=== PATIENT | female | born 1940 | race African-American/Black ===

== ENCOUNTER 2016-08-02 12:02 | Emergency (ER) | payer OTHER ==
[2016-08-02 12:11] VITALS: BP 157/94; PULSE 77; TEMP 98.3; BMI 28.0
--- NOTE | 2016-08-02 14:19 | PDOC ---
History of Present Illness - General Chief Complaint: Cold Symptoms Stated Complaint: SINUS, CLOGGED EARS Time Seen by Provider: 08/02/16 13:52 History Source: Patient Exam Limitations: No Limitations - History of Present Illness Initial Comments: 08/02/16 14:13 Patient is here with complaints of 10 days runny nose, frontal headaches, worse on the right than the left. did not have fever until a few days ago when the drainage turned thick yellow with some blood-tinged with her blowing. States ears or congestion, has no cough, no shortness of breath. has frequent troubles with her sinuses Timing/Duration: reports: changing over time, getting worse, gone now Severity: reports: mild, moderate Associated Symptoms: reports: facial pain, fever/chills, headache, nasal congestion, nasal drainage. denies: cough, dizziness Past History - Travel Traveled outside of the country in the last 30 days: No Close contact w/someone who was outside of country & ill: No - Past Medical History Allergies/Adverse Reactions: Allergies Allergy/AdvReac Type Severity Reaction Status Date / Time codeine [Codeine] Allergy Intermediate Verified 08/02/16 12:07 Home Medications: Ambulatory Orders Calcium 250Mg/Vit-D 125 Units [Oscal 250 mg+D -] 2 each PO BID 10/23/12 Metoprolol Succinate 25 mg PO HS 12/11/12 Rosuvastatin Calcium [Crestor] 5 mg PO HS 12/11/12 Amox-Tr/K Cl [Augmentin 875Mg Tablet] 1 tab PO BID #20 tablet 08/02/16 Anemia: No Asthma: No Cancer: No Cardiac Disorders: Yes (cardiac arrythmia) CVA: No COPD: No CHF: No Dementia: No Diabetes: No GI Disorders: No Disorders: No HTN: No Hypercholesterolemia: Yes Liver Disease: No Seizures: No Thyroid Disease: No Other medical history: EYE PROBLEMS - Surgical History Cardiac Surgery: No - Psycho/Social/Smoking Cessation Hx Anxiety: No Suicidal Ideation: No Smoking History: Never smoked Have you smoked in the past 12 months: No Information on smoking cessation initiated: No Hx Alcohol Use: No Drug/Substance Use Hx: No Substance Use Type: None Review of Systems - Review of Systems Able to Perform ROS?: Yes Is the patient limited Slovak proficient: Yes Constitutional: Yes: Symptoms Reported, See HPI, Chills, Fever, Malaise HEENTM: Yes: Symptoms Reported, See HPI, Nose Congestion Respiratory: Yes: See HPI. No: Symptoms reported, Cough Cardiac (ROS): No: Symptoms Reported Integumentary: Yes: Symptoms Reported, Other All Other Systems: Reviewed and Negative *Physical Exam - Vital Signs Last Vital Signs Temp Pulse Resp BP Pulse Ox 98.3 F 77 18 157/94 100 08/02/16 12:08 08/02/16 12:08 08/02/16 12:08 08/02/16 12:08 08/02/16 12:08 - Physical Exam General Appearance: Yes: Nourished, Appropriately Dressed, Mild Distress HEENT: positive: TASHIA, TMs Normal, Pharynx Normal (some sinus drainage noted in posterior pharynx), Nasal Congestion, Rhinorrhea (clear/ thick white ), Sinus Tenderness (worse on ). negative: Normal ENT Inspection Neck: positive: Supple. negative: Tender, Lymphadenopathy (R), Lymphadenopathy (L) Respiratory/Chest: positive: Lungs Clear, Normal Breath Sounds Cardiovascular: positive: Regular Rate Gastrointestinal/Abdominal: positive: Normal Bowel Sounds, Soft. negative: Tender Integumentary: positive: Normal Color, Dry, Other (patient's with a small lesion to her left cheek firm, nontender, without erythema or drainage. 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 NML intact, Fully Oriented, Alert, Normal Mood/ Affect, Normal Response, Motor Strength 5/5 Progress Note - Progress Note Progress Note: Mild sinusitis, will treat with Augmentin and conservative measures *DC/Admit/Observation/Transfer Diagnosis at time of Disposition: Sinusitis Qualifiers: Sinusitis location: unspecified location Chronicity: unspecified Qualified Code (s): J32.9 - Chronic sinusitis, unspecified - Discharge Dispostion Disposition: HOME Condition at time of disposition: Stable Admit: No - Prescriptions Prescriptions: Amox-Tr/K Cl [Augmentin 875Mg Tablet] 1 tab PO BID #20 tablet - Patient Instructions Printed Discharge Instructions: DI for Sinusitis Additional Instructions: Rest, drink lots of fluids: Teas, water, soups, Pedialyte Saltwater gargles Steamy showers/seem to face break up mucus Avoid contact with others until fevers and cough resolved Lots of handwashing and good hygiene Continue [id number] medications for symptomatic relief Tylenol or Motrin for fever and pain Augmentin 875 mg one pill every 12 hours for 10 days Followup with private physician in one to 2 days as needed Return to emergency department for worsened symptoms, fevers, dehydration
== END 2016-08-02 14:33 | disposition home or self-care (01) ==
LOC: JERFT 12:02
DX: J32.9 Chronic sinusitis, unspecified (principal)
CPT/HCPCS: 99281-25

== ENCOUNTER 2019-07-04 17:39 | Inpatient (IN) | payer OTHER ==
[2019-07-04] MEDS ORDERED: LACTATED RINGERS SOLUTION 1000 ML INFUS.BAG IV ONE (18:28)
[2019-07-04] MEDS ORDERED: ONDANSETRON 4 MG/2 ML VIAL IVPB ONE (18:28)
[2019-07-04] MEDS ORDERED: FAMOTIDINE 20 MG/50 ML IVPB 20 MG/50 ML MG IVPB ONE ×2 (18:28→18:32)
[2019-07-04] MEDS ORDERED: ONDANSETRON 4 MG/2 ML VIAL ONE (18:32)
[2019-07-04 18:53] LABS: BASO % 0.2 % (0-2.0); EOS % 0.3 % (0-4.5); HEMATOCRIT 43.1 % (32.4-45.2); HEMOGLOBIN 14.8 GM/dL (10.7-15.3); LYMPH % 25.9 % (8-40); MCHC 34.4 g/dl (32.0-36.0); MEAN CELL VOLUME 90.2 fl (80-96); MEAN PLT VOLUME 8.2 fl (7.5-11.1); MONO % 8.3 % (3.8-10.2); NEUT % 65.3 % (42.8-82.8); PLATELET COUNT 232 K/MM3 (134-434); RBC 4.78 M/mm3 (3.60-5.2); RDW 14.3 % (11.6-15.6); WHITE BLOOD COUNT 4.8 K/mm3 (4.0-10.0)
[2019-07-04 18:59] LABS: INR 1.13 (0.83-1.09); PROTHROMBIN TIME (PATIENT) 13.3 SEC (9.7-13.0)
[2019-07-04 19:21] LABS: BILIRUBIN,TOTAL 1.2 mg/dL (0.2-1); BLOOD UREA NITROGEN 18.4 mg/dL (7-18); CALCIUM 9.9 mg/dL (8.5-10.1); CREATININE 1.1 mg/dL (0.55-1.3); MAGNESIUM 2.3 mg/dL (1.8-2.4); POTASSIUM 3.9 mmol/L (3.5-5.1); TOT PROT 9.7 g/dl (6.4-8.2)
[2019-07-04 19:24] LABS: LIPASE 245 U/L (73-393)
--- NOTE | 2019-07-04 20:03 | PDOC ---
History of Present Illness - General Chief Complaint: Nausea/Vomiting Stated Complaint: CHEST PAIN Time Seen by Provider: 07/04/19 18:15 History Source: Patient Exam Limitations: No Limitations - History of Present Illness Initial Comments: 07/04/19 19:59 78y F with PMH of "irregular heart beat", HLD, Sarcoidosis presenting to ED for dizziness, nausea and vomiting today. Patient states she woke up this AM feeling "off" and suddenly started feeling nauseous and started vomiting. She went to lay down and woke up dizzy and vomited. On the way here she also vomited. She describes the dizziness as the room spinning, not worse with position changes. She denies recent illnesses, congestion, sore throat, chest pain, SOB, headache, changes in vision, numbness/tingling, weakness, abdominal pain, diarrhea. PMD: Christopher PMH: see hpi PSH: none Meds: toprol, lipitor Allergies: codeine NIH Stroke Scale - Last Known Well Date/Time & Onset Date Last Known Well: 07/04/19 Time Last Known Well: 09:00 - Initial Evaluation Level of consciousness: Alert Ask patient the month and their age: Answers both correctly Ask patient to open & close eyes; make fist and let go: Obeys both correctly Best gaze (horizontal eye movement): Normal Visual field testing: No visual field loss Facial paresis (Show teeth/raise eyebrows/close eyes tight): Normal symmetrical movement Motor Function: Left Arm: Normal Motor Function: Right Arm: Normal (extends arm 90 (or 45) degrees for 10 seconds without drift Motor Function: Left Leg: Normal (extends leg 30 degrees for 5 seconds without drift) Motor Function: Right Leg: Normal (extends leg 30 degrees for 5 seconds without drift) Limb Ataxia: Present in two limbs Sensory(Use pinprick test arms,legs,trunk,face/side to side): Normal Best language (Describe picture, name items, read sentences): No Aphasia Dysarthria (read several words): Normal articulation Extinction and Inattention: No abnormality - Total Score NIH Stroke Scale Score: 2 Past History - Past Medical History Allergies/Adverse Reactions: Allergies Allergy/AdvReac Type Severity Reaction Status Date / Time codeine [Codeine] Allergy Intermediate Verified 08/02/16 12:07 Home Medications: Ambulatory Orders Calcium 250Mg/Vit-D 125 Units [Oscal 250 mg+D -] 2 each PO BID 10/23/12 Metoprolol Succinate 25 mg PO HS 12/11/12 Rosuvastatin Calcium [Crestor] 5 mg PO HS 12/11/12 Carboxymethyl/Glycerin/Poly80 [Refresh Optive Advanced Drops] 07/04/19 Olopatadine HCl 07/04/19 Anemia: No Asthma: No Cancer: No Cardiac Disorders: Yes (cardiac arrythmia) CVA: No COPD: No CHF: No Dementia: No Diabetes: No GI Disorders: No Disorders: No HTN: No Hypercholesterolemia: Yes Liver Disease: No Seizures: No Thyroid Disease: No - Surgical History Cardiac Surgery: No - Immunization History Immunization Up to Date: No - Psycho Social/Smoking Cessation Hx Smoking History: Never smoked Have you smoked in the past 12 months: No Hx Alcohol Use: No Drug/Substance Use Hx: No Substance Use Type: None Review of Systems - Review of Systems Constitutional: No: Symptoms Reported HEENTM: No: Blurred Vision, Double Vision, Hearing Loss Respiratory: No: Symptoms reported Cardiac (ROS): No: Symptoms Reported ABD/GI: Yes: Nausea, Vomiting : No: Symptoms Reported Musculoskeletal: No: Symptoms Reported Integumentary: No: Symptoms Reported Neurological: Yes: Ataxia, Dizziness *Physical Exam - Vital Signs Last Vital Signs Temp Pulse Resp BP Pulse Ox 97.3 F L 104 H 20 157/91 97 07/04/19 17:50 07/04/19 17:50 07/04/19 17:50 07/04/19 17:50 07/04/19 17:50 - Physical Exam General Appearance: Yes: Nourished, Appropriately Dressed. No: Apparent Distress HEENT: positive: EOMI, TASHIA, Normal ENT Inspection Neck: positive: Trachea midline, Supple. negative: Lymphadenopathy (R), Lymphadenopathy (L) Respiratory/Chest: positive: Lungs Clear, Normal Breath Sounds. negative: Crackles, Rales, Rhonchi, Stridor, Wheezing Cardiovascular: positive: Regular Rhythm, Regular Rate, S1, S2. negative: Edema , JVD, Murmur Vascular Pulses: Dorsalis-Pedis (R): 2+, Doralis-Pedis (L): 2+ Gastrointestinal/Abdominal: positive: Normal Bowel Sounds, Soft. negative: Tender Musculoskeletal: negative: CVA Tenderness Extremity: positive: Normal Capillary Refill. negative: Swelling, Calf Tenderness, Erythema Integumentary: positive: Normal Color, Dry, Warm Neurologic: positive: game protector II-XII NML intact, Fully Oriented, Alert, Normal Mood/ Affect, Normal Response, Motor Strength 5/5. negative: Facial Droop, Numbness, Sensory Deficit, Finger to Nose, Confused, Disoriented ED Treatment Course - LABORATORY CBC & Chemistry Diagram: 07/04/19 18:20 07/04/19 18:20 - ADDITIONAL ORDERS Additional order review: Laboratory Results 07/04/19 07/04/19 07/04/19 18:20 18:20 18:20 PT with INR 13.30 H INR 1.13 H Sodium 135 L Potassium 3.9 Chloride 104 Carbon Dioxide 23 Anion Gap 7 L BUN 18.4 H Creatinine 1.1 Est GFR (CKD-EPI)AfAm 56.48 Est GFR (CKD-EPI)NonAf 48.73 Random Glucose 169 H Calcium 9.9 Magnesium 2.3 Total Bilirubin 1.2 H AST 26 ALT 19 Alkaline Phosphatase 135 H Creatine Kinase 173 Creatine Kinase Index 0.8 CK-MB (CK-2) 1.4 Troponin I < 0.02 Total Protein 9.7 H Albumin 4.0 Lipase 245 07/04/19 18:20 RBC 4.78 MCV 90.2 MCHC 34.4 RDW 14.3 MPV 8.2 Neutrophils % 65.3 D Lymphocytes % 25.9 Monocytes % 8.3 Eosinophils % 0.3 D Basophils % 0.2 - RADIOLOGY Radiology Studies Ordered: Category Date Time Status HEAD CT WITHOUT CONTRAST [CT] Stat CT Scan 07/04/19 18:36 Ordered CHEST X-RAY PORTABLE* [RAD] Stat Radiology 07/04/19 18:16 Taken - Medications Given in the ED: ED Medications Discontinued Medications Generic Name Dose Route Start Last Admin Trade Name Freq PRN Reason Stop Dose Admin Famotidine/Sodium Chloride 20 mg in 50 mls @ 100 mls/hr 07/04/19 18:28 19:00 Pepcid 20 Mg Premixed Ivpb - IVPB 07/04/19 18:57 100 mls/hr ONCE ONE Administration Lactated Ringer's 1,000 ml 07/04/19 18:28 07/04/19 18:40 Lactated Ringers Solution IV 07/04/19 18:29 1,000 ml NOW ONE Administration Ondansetron HCl 4 mg 07/04/19 18:28 07/04/19 18:45 Zofran Injection IVPB 07/04/19 18:29 4 mg ONCE ONE Administration Medical Decision Making - Medical Decision Making 07/04/19 23:32 78y F with PMH of ?afib, sarcoidosis, hld presenting to ED for dizziness, nausea and vomiting. currently asymptomatic. vitals show tachycardia. patient appears comfortable, no distress HINTS negative however dysmetria with finger-nose. will order labs including cardiac, coags -iv fluids, zofran, pepcid -ekg, cxr, CT head. ekg: sinus tachycardia with 1st degree av block, no byron or depressions. cxr: hilar fullness, no infiltrates or consolidations ct head: no acute pathology, gross infarcts or bleeds labs show elevation of t. bili and alkp but baseline. other labs wnl. patient aysmptomatic, ambulated to bathroom without difficulty. peripheral vertigo v. central vertigo v. dehydration. given sudden onset and abruption of symptoms, could be peripheral however patient has not had these symptoms before and given dysmetria cannot rule out posterior cva/tia. Spoke with Dr Silver, recommended MRI/MRA and full dose ASA. will admit patient sees Dr. Perry and when she was called, stated patient is new and she is not familiar with patient and recommended hospitalist admission. endorsed to hospitalist. Discharge - Discharge Information Problems reviewed: Yes Clinical Impression/Diagnosis: Dizziness, TIA (transient ischemic attack) Condition: Stable - Admission Yes - Follow up/Referral - Patient Discharge Instructions - Post Discharge Activity
--- NOTE | 2019-07-04 20:50 | PDOC ---
Documentation entered by Barbra Lai SCRIBE, acting as scribe for Nick Terry MD. Nick Terry MD: This documentation has been prepared by the Joelle lopez Adrianna, SCRIBE, under my direction and personally reviewed by me in its entirety. I confirm that the documentation accurately reflects all work, treatment, procedures, and medical decision making performed by me. Attending Attestation - Resident Resident Name: Judit Carrillo - [facility] HPI: 78 year old female, with a significant PMH of cardiac arrhythmia, sarcoidosis, and HLD, presents with dizziness, nausea, and vomit since earlier today. Patient reports feeling off upon waking up, and notes sudden onset nausea and NBNB vomit. She endorses room-spinning dizziness (unaffected by positional changes). Allergies: Codeine Surgical History: None reported Social History: Denies EtOH, tobacco, or illicit drug use PCP: Dr. White - Physicial Exam PE: 07/04/19 20:44 Patient is awake and alert, well-nourished, in no distress Normocephalic and atraumatic PERRLA, EOMI, no nystagmus No JVD, no carotid bruits CTA RRR cranial nerves II through XII are grossly intact; motor is 5 over 54; Gait is stable; [id number] (abnormal on the left); no dysmetria, no dysdiadochokinesia - Medical Decision Making 07/04/19 20:49 78-year-old female with history of hypertension hypercholesterolemia presents with sudden onset of dizziness associated with nausea and vomiting as well as dysmetria and [id number] abnormalities that have now significantly improved. CT of head shows no evidence of intracranial hemorrhage. Patient is not a TPA candidate given the resolution of her symptoms. EKG shows no evidence of acute ischemia or dysrhythmia. Will administer aspirin and meclizine. Will place on stroke/obvious for TIA evaluation.
[2019-07-04] MEDS ORDERED: ASPIRIN 81 MG CHEWABLE TABLETS PO ONE (22:22)
[2019-07-04] MEDS ORDERED: ASPIRIN 81 MG CHEWABLE TABLETS ONE (22:28)
--- NOTE | 2019-07-04 23:10 | HP ---
<Chay Singh - Last Filed: 07/05/19 00:52> CHIEF COMPLAINT: PCP: HISTORY OF PRESENT ILLNESS: ER course was notable for: (1) (2) (3) Recent Travel: PAST MEDICAL HISTORY: PAST SURGICAL HISTORY: Social History: Smoking: Alcohol: Drugs: Allergies codeine [Codeine] Allergy (Intermediate, Verified 08/02/16 12:07) "AGITATION" "DELERIOUS" HOME MEDICATIONS: Home Medications Medication Instructions Recorded Calcium 250Mg/Vit-D 125 Units 2 each PO BID 10/23/12 [Oscal 250 mg+D -] Metoprolol Succinate 25 mg PO HS 12/11/12 Rosuvastatin Calcium [Crestor] 5 mg PO HS 12/11/12 Carboxymethyl/Glycerin/Poly80 07/04/19 [Refresh Optive Advanced Drops] Olopatadine HCl 07/04/19 REVIEW OF SYSTEMS CONSTITUTIONAL: Absent: fever, chills, diaphoresis, generalized weakness, malaise, loss of appetite, weight change HEENT: Absent: rhinorrhea, nasal congestion, throat pain, throat swelling, difficulty swallowing, mouth swelling, ear pain, eye pain, visual changes CARDIOVASCULAR: Absent: chest pain, syncope, palpitations, irregular heart rate, lightheadedness , peripheral edema RESPIRATORY: Absent: cough, shortness of breath, dyspnea with exertion, orthopnea, wheezing, stridor, hemoptysis GASTROINTESTINAL: Absent: abdominal pain, abdominal distension, nausea, vomiting, diarrhea, constipation, melena, hematochezia GENITOURINARY: Absent: dysuria, frequency, urgency, hesitancy, hematuria, flank pain, genital pain MUSCULOSKELETAL: Absent: myalgia, arthralgia, joint swelling, back pain, neck pain SKIN: Absent: rash, itching, pallor HEMATOLOGIC/IMMUNOLOGIC: Absent: easy bleeding, easy bruising, lymphadenopathy, frequent infections ENDOCRINE: Absent: unexplained weight gain, unexplained weight loss, heat intolerance, cold intolerance NEUROLOGIC: Absent: headache, focal weakness or paresthesias, dizziness, unsteady gait, seizure, mental status changes, bladder or bowel incontinence PSYCHIATRIC: Absent: anxiety, depression, suicidal or homicidal ideation, hallucinations. PHYSICAL EXAMINATION Vital Signs - 24 hr 07/04/19 07/04/19 07/04/19 17:50 20:50 23:45 Temperature 97.3 F L 98.1 F Pulse Rate 104 H Pulse Rate [ 113 H 72 Apical] Respiratory 20 16 18 Rate Blood Pressure 157/91 Blood Pressure 174/88 H 143/73 [Right Arm] O2 Sat by Pulse 97 100 99 Oximetry (%) 07/04/19 23:49 Temperature Pulse Rate Pulse Rate [ Apical] Respiratory Rate Blood Pressure Blood Pressure [Right Arm] O2 Sat by Pulse 99 Oximetry (%) GENERAL: Awake, alert, and fully oriented, in no acute distress. HEAD: Normal with no signs of trauma. EYES: Pupils equal, round and reactive to light, extraocular movements intact, sclera anicteric, conjunctiva clear. No lid lag. EARS, NOSE, THROAT: Ears normal, nares patent, oropharynx clear without exudates. Moist mucous membranes. NECK: Normal range of motion, supple without lymphadenopathy, JVD, or masses. LUNGS: Breath sounds equal, clear to auscultation bilaterally. No wheezes, and no crackles. No accessory muscle use. HEART: Regular rate and rhythm, normal S1 and S2 without murmur, rub or gallop. ABDOMEN: Soft, nontender, not distended, normoactive bowel sounds, no guarding, no rebound, no masses. No hepatomegaly or splenomegaly. MUSCULOSKELETAL: Normal range of motion at all joints. No bony deformities or tenderness. No CVA tenderness. UPPER EXTREMITIES: 2+ pulses, warm, well-perfused. No cyanosis. No clubbing. No peripheral edema. LOWER EXTREMITIES: 2+ pulses, warm, well-perfused. No calf tenderness. No peripheral edema. NEUROLOGICAL: Cranial nerves II-XII intact. Normal speech. Normal gait. PSYCHIATRIC: Cooperative. Good eye contact. Appropriate mood and affect. SKIN: Warm, dry, normal turgor, no rashes or lesions noted, normal capillary refill. Laboratory Results - last 24 hr 07/04/19 07/04/19 07/04/19 18:20 18:20 18:20 WBC 4.8 RBC 4.78 Hgb 14.8 Hct 43.1 MCV 90.2 MCH 31.0 MCHC 34.4 RDW 14.3 Plt Count 232 MPV 8.2 Absolute Neuts (auto) 3.1 Neutrophils % 65.3 D Lymphocytes % 25.9 Monocytes % 8.3 Eosinophils % 0.3 D Basophils % 0.2 Nucleated RBC % 0 PT with INR INR Sodium 135 L Potassium 3.9 Chloride 104 Carbon Dioxide 23 Anion Gap 7 L BUN 18.4 H Creatinine 1.1 Est GFR (CKD-EPI)AfAm 56.48 Est GFR (CKD-EPI)NonAf 48.73 Random Glucose 169 H Calcium 9.9 Magnesium 2.3 Total Bilirubin 1.2 H AST 26 ALT 19 Alkaline Phosphatase 135 H Creatine Kinase 173 Creatine Kinase Index 0.8 CK-MB (CK-2) 1.4 Troponin I < 0.02 Total Protein 9.7 H Albumin 4.0 Lipase 245 07/04/19 18:20 WBC RBC Hgb Hct MCV MCH MCHC RDW Plt Count MPV Absolute Neuts (auto) Neutrophils % Lymphocytes % Monocytes % Eosinophils % Basophils % Nucleated RBC % PT with INR 13.30 H INR 1.13 H Sodium Potassium Chloride Carbon Dioxide Anion Gap BUN Creatinine Est GFR (CKD-EPI)AfAm Est GFR (CKD-EPI)NonAf Random Glucose Calcium Magnesium Total Bilirubin AST ALT Alkaline Phosphatase Creatine Kinase Creatine Kinase Index CK-MB (CK-2) Troponin I Total Protein Albumin Lipase ASSESSMENT/PLAN: ATTENDING PHYSICIAN STATEMENT I saw and evaluated the patient. I reviewed the resident's note and discussed the case with the resident. I agree with the resident's findings and plan as documented. SUBJECTIVE: OBJECTIVE: ASSESSMENT AND PLAN: <Mari Conti - Last Filed: 07/05/19 05:01> CHIEF COMPLAINT: dizziness and vomiting for 1 day PCP: Dr White HISTORY OF PRESENT ILLNESS: 78y F with PMH of Afib ("irregular heart beat" per patient), HLD, Sarcoidosis presenting to ED for dizziness, nausea and vomiting today. Patient states she woke up this AM feeling like the room is spinnig and suddenly started feeling nauseous and started vomiting. She went to lay down and woke up, sat up and got dizzy again then vomited. As On the way here she also vomited. Pt endorsed 7-8 recurrent episodes. As per daughter her last episode was associated with a hot/ cold sensation and perspiration. Whenever, pt tried to ambulate, she would also get extremely unsteady per daughter and she would have to sit or be assisted to the bathroom. 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 She also denies headache, changes in vision, hearing loss, tinnitus, syncope, chest pain, SOB, palpitations, numbness/tingling, weakness or changes in bowel movement or urination. Pt endorsed resolution of her symptoms since she has been in the ED and after receiving fluids. ER course was notable for: (1) CBC unremarkable, CMP remarkable for hyponatremia, BG 169, t kang 1.2, ALP 135. PT/INR 13.3/1.13, (2) trop neg, head CT neg, CXR no acute pathology, EKG . NIHSS 2 (3) Neuro Dr Tipton consulted requested MRI and aspirin Recent Travel: none PAST MEDICAL HISTORY: as above PAST SURGICAL HISTORY: none Social History: denies Smoking: Alcohol: Drugs: Allergies codeine [Codeine] Allergy (Intermediate, Verified 08/02/16 12:07) "AGITATION" "DELERIOUS" HOME MEDICATIONS: Home Medications Medication Instructions Recorded Calcium 250Mg/Vit-D 125 Units 2 each PO BID 10/23/12 [Oscal 250 mg+D -] Metoprolol Succinate 25 mg PO HS 12/11/12 Rosuvastatin Calcium [Crestor] 5 mg PO HS 12/11/12 Carboxymethyl/Glycerin/Poly80 07/04/19 [Refresh Optive Advanced Drops] Olopatadine HCl 07/04/19 REVIEW OF SYSTEMS CONSTITUTIONAL: Absent: fever, chills, diaphoresis, generalized weakness, malaise, loss of appetite, weight change HEENT: Absent: rhinorrhea, nasal congestion, throat pain, throat swelling, difficulty swallowing, mouth swelling, ear pain, eye pain, visual changes CARDIOVASCULAR: Absent: chest pain, syncope, palpitations, irregular heart rate, lightheadedness , peripheral edema RESPIRATORY: Absent: cough, shortness of breath, dyspnea with exertion, orthopnea, wheezing, stridor, hemoptysis GASTROINTESTINAL: Absent: abdominal pain, abdominal distension, nausea, vomiting, diarrhea, constipation, melena, hematochezia GENITOURINARY: Absent: dysuria, frequency, urgency, hesitancy, hematuria, flank pain, genital pain MUSCULOSKELETAL: Absent: myalgia, arthralgia, joint swelling, back pain, neck pain SKIN: Absent: rash, itching, pallor HEMATOLOGIC/IMMUNOLOGIC: Absent: easy bleeding, easy bruising, lymphadenopathy, frequent infections ENDOCRINE: Absent: unexplained weight gain, unexplained weight loss, heat intolerance, cold intolerance NEUROLOGIC: dizziness, unsteady gait Absent: headache, focal weakness or paresthesias, , seizure, mental status changes, bladder or bowel incontinence PSYCHIATRIC: Absent: anxiety, depression, suicidal or homicidal ideation, hallucinations. PHYSICAL EXAMINATION Vital Signs - 24 hr 07/04/19 07/04/19 17:50 20:50 Temperature 97.3 F L Pulse Rate 104 H Pulse Rate [ 113 H Apical] Respiratory 20 16 Rate Blood Pressure 157/91 Blood Pressure 174/88 H [Right Arm] O2 Sat by Pulse 97 100 Oximetry (%) GENERAL: Awake, alert, and fully oriented, in no acute distress. HEAD: Normal with no signs of trauma. EYES: Pupils equal, round and reactive to light, extraocular movements intact, sclera anicteric, conjunctiva clear. No lid lag. EARS, NOSE, THROAT: Ears normal, nares patent, oropharynx clear without exudates. Moist mucous membranes. NECK: Normal range of motion, supple without lymphadenopathy, JVD, or masses. LUNGS: Breath sounds equal, clear to auscultation bilaterally. No wheezes, and no crackles. No accessory muscle use. HEART: Regular rate and rhythm, normal S1 and S2 without murmur, rub or gallop. ABDOMEN: Soft, nontender, not distended, normoactive bowel sounds, no guarding, no rebound, no masses. No hepatomegaly or splenomegaly. MUSCULOSKELETAL: Normal range of motion at all joints. No bony deformities or tenderness. No CVA tenderness. UPPER EXTREMITIES: 2+ pulses, warm, well-perfused. No cyanosis. No clubbing. No peripheral edema. LOWER EXTREMITIES: 2+ pulses, warm, well-perfused. No calf tenderness. No peripheral edema. NEUROLOGICAL: Cranial nerves II-XII intact. Normal speech.normal gait since in ED, motor strength 5/5, sensation intact. no dysmetria or dysdiadokenisia ( though present earlier in ED on left side) PSYCHIATRIC: Cooperative. Good eye contact. Appropriate mood and affect. SKIN: Warm, dry, normal turgor, no rashes or lesions noted, normal capillary refill. Laboratory Results - last 24 hr 07/04/19 07/04/19 07/04/19 18:20 18:20 18:20 WBC 4.8 RBC 4.78 Hgb 14.8 Hct 43.1 MCV 90.2 MCH 31.0 MCHC 34.4 RDW 14.3 Plt Count 232 MPV 8.2 Absolute Neuts (auto) 3.1 Neutrophils % 65.3 D Lymphocytes % 25.9 Monocytes % 8.3 Eosinophils % 0.3 D Basophils % 0.2 Nucleated RBC % 0 PT with INR INR Sodium 135 L Potassium 3.9 Chloride 104 Carbon Dioxide 23 Anion Gap 7 L BUN 18.4 H Creatinine 1.1 Est GFR (CKD-EPI)AfAm 56.48 Est GFR (CKD-EPI)NonAf 48.73 Random Glucose 169 H Calcium 9.9 Magnesium 2.3 Total Bilirubin 1.2 H AST 26 ALT 19 Alkaline Phosphatase 135 H Creatine Kinase 173 Creatine Kinase Index 0.8 CK-MB (CK-2) 1.4 Troponin I < 0.02 Total Protein 9.7 H Albumin 4.0 Lipase 245 07/04/19 18:20 WBC RBC Hgb Hct MCV MCH MCHC RDW Plt Count MPV Absolute Neuts (auto) Neutrophils % Lymphocytes % Monocytes % Eosinophils % Basophils % Nucleated RBC % PT with INR 13.30 H INR 1.13 H Sodium Potassium Chloride Carbon Dioxide Anion Gap BUN Creatinine Est GFR (CKD-EPI)AfAm Est GFR (CKD-EPI)NonAf Random Glucose Calcium Magnesium Total Bilirubin AST ALT Alkaline Phosphatase Creatine Kinase Creatine Kinase Index CK-MB (CK-2) Troponin I Total Protein Albumin Lipase ASSESSMENT/PLAN: 78y F with PMH of Afib ("irregular heart beat" per patient), HLD, Sarcoidosis presenting to ED for dizziness, nausea and vomiting today. Patient states she woke up this AM feeling like the room is spinnig and suddenly started feeling nauseous and started vomiting. admitted for vertigo to r/o TIA/post circulation stroke. Vertigo possibly due to TIA/post circulation stroke vs vestibular disturbances from viral illness or other vestibulopathy Pt has hx of afib, mild dysmetria on the left on admission and vertigo. both now resolved. NIHSS score [address] negative for stroke or acute bleed [id number] score 3. Not on AC Recent sick contact admit to tele orthostatic vitals carotid US ordered echo ordered hold toprol for now aspirin 81 mg daily resuming home dose of statin for now until lipid panel fall precautions Neuro Dr Tipton consulted Brain MRI ordered Meclizine PRN if vertigo recurs cont NS @ 83 cc/hr TSH level Hyperglycemia non diabetic will monitor for now HLD cont home dose of crestor for now abnormal LFTs tbil 1.2 ALP 135 no abdominal pain monitor on repeat CMP, if continue to elevate, consider abdominal US Sarcoidosis stable not on meds DVT hep sub Q admit to Tele Visit type - Emergency Visit Emergency Visit: Yes ED Registration Date: 07/04/19 Care time: The patient presented to the Emergency Department on the above date and was hospitalized for further evaluation of their emergent condition. - New Patient This patient is new to me today: Yes Date on this admission: 07/05/19 - Critical Care Critical Care patient: No ATTENDING PHYSICIAN STATEMENT I saw and evaluated the patient. I reviewed the resident's note and discussed the case with the resident. I agree with the resident's findings and plan as documented. SUBJECTIVE: OBJECTIVE: ASSESSMENT AND PLAN:
[2019-07-04] MEDS ORDERED: ACETAMINOPHEN 325 MG TABLET (FP) PO PRN (23:47)
[2019-07-04] MEDS ORDERED: MECLIZINE HCL 12.5 MG TABLET PO PRN (23:54)
[2019-07-05] MEDS: SODIUM CHLORIDE 1,000 ML IV SCH ×2 (00:30→13:38)
[2019-07-05 01:55] VITALS: BMI 25.7
[2019-07-05] MEDS: HEPARIN NA (PORCINE) 5,000 UNITS/ML 1ML VIAL SQ SCH ×3 (06:23→22:13)
[2019-07-05 06:37] LABS: BASO % 0.5 % (0-2.0); HEMATOCRIT 38.5 % (32.4-45.2); HEMOGLOBIN 13.2 GM/dL (10.7-15.3); MCH 30.9 pg (25.7-33.7); MCHC 34.4 g/dl (32.0-36.0); MEAN CELL VOLUME 89.9 fl (80-96); MEAN PLT VOLUME 8.1 fl (7.5-11.1); MONO % 11.6 % (3.8-10.2); NEUT % 53.9 % (42.8-82.8); PLATELET COUNT 206 K/MM3 (134-434); RBC 4.28 M/mm3 (3.60-5.2); RDW 13.9 % (11.6-15.6); WHITE BLOOD COUNT 4.5 K/mm3 (4.0-10.0)
[2019-07-05 07:09] LABS: ALBUMIN 3.4 g/dl (3.4-5.0); BILIRUBIN,TOTAL 1.1 mg/dL (0.2-1); BLOOD UREA NITROGEN 14.3 mg/dL (7-18); CALCIUM 9.3 mg/dL (8.5-10.1); MAGNESIUM 2.3 mg/dL (1.8-2.4); PHOSPHOROUS 3.2 mg/dL (2.5-4.9); POTASSIUM 3.7 mmol/L (3.5-5.1); TOT PROT 8.4 g/dl (6.4-8.2)
[2019-07-05 10:18] LABS: EPI CELLS 2.2 /HPF (0-5/HPF); HYALINE CASTS 5 /lpf (0-8); PH,URINE 6.5 (5.0-8.0); URINE APPEARANCE CLEAR; URINE BACTERIA 12.4 /hpf (NEGATIVE); URINE BILIRUBIN NEGATIVE (NEGATIVE); URINE COLOR YELLOW; URINE GLUCOSE (UA) NEGATIVE (NEGATIVE); URINE KETONE NEGATIVE (NEGATIVE); URINE LEUK ESTERASE 1+ (NEGATIVE); URINE NITRITE NEGATIVE (NEGATIVE); URINE PROTEIN NEGATIVE (NEGATIVE); URINE RBC 1 /hpf (0-4); URINE WBC 4 /hpf (0-5)
[2019-07-05] MEDS: ASPIRIN COATED 81 MG TABLET.EC PO SCH (10:18)
--- NOTE | 2019-07-05 10:52 | CON.NEURO ---
Consult Consult Specialty:: Danuta Referred by:: ER - History of Present Illness History of Present Illness: this is a very pleasant 78-year-old right-handed female patient with present medical history significant for coronary artery disease, hypertension, chronic low back pain, osteopenia presented to the hospital with the chief complaint of dizziness. I spoke to the emergency room resident yesterday CAT scan of the head revealed no evidence of acute pathology. Patient was complaining of lightheadedness and no true vertigo. Patient with no double vision or blurry vision. No recent head trauma. No recent fall. In the emergency room patient was stepwise to be admitted to telemetry for further treatment and management since admission patient with no falls no loss of consciousness no head trauma. - Alcohol/Substance Use Hx Alcohol Use: No - Smoking History Smoking history: Never smoked Have you smoked in the past 12 months: No Home Medications - Allergies Allergies/Adverse Reactions: Allergies Allergy/AdvReac Type Severity Reaction Status Date / Time codeine [Codeine] Allergy Intermediate Verified 08/02/16 12:07 - Home Medications Home Medications: Ambulatory Orders Calcium 250Mg/Vit-D 125 Units [Oscal 250 mg+D -] 2 each PO BID 10/23/12 Metoprolol Succinate 25 mg PO HS 12/11/12 Rosuvastatin Calcium [Crestor] 5 mg PO HS 12/11/12 Carboxymethyl/Glycerin/Poly80 [Refresh Optive Advanced Drops] 07/04/19 Olopatadine HCl 07/04/19 Family Medical History Family History: Unremarkable Review of Systems - Review of Systems Constitutional: reports: No Symptoms Eyes: reports: No Symptoms Neurological: reports: Headache, Incoordination, Numbness Physical Exam-Neuro Vital Signs: Vital Signs Temperature 98.5 F 07/05/19 06:00 Pulse Rate 69 07/05/19 06:00 Respiratory Rate 18 07/05/19 06:00 Blood Pressure 144/79 07/05/19 06:00 O2 Sat by Pulse Oximetry (%) 98 07/05/19 01:46 Constitutional: Yes: Well Nourished Neck: Yes: WNL Labs: CBC, BMP 07/05/19 05:20 07/05/19 05:20 INR, PTT INR 1.13 (0.83-1.09) H 07/04/19 18:20 - Neuro Exam Level Of Consciousness: Yes: Oriented to Person, Oriented to Place, Oriented to Time Eyes: Yes: PERRLA Speech: WNL Dominant Hand: Right Cranial Nerves II-XII Intact: Yes Gag: Present DTR's: 1+ Left Bicep, 1+ Right Bicep, 1+ Left Brachioradialis, 1+ Right Brachioradialis Response to light touch: Normal Response to pain prick: Normal Response to temperature: Normal Motor Strength: 3/5: Left Arm, Right Arm, Left Leg, Right Leg Gait: Deferred Imaging - Results X-ray: Image Reviewed Cat Scan: Image Reviewed Problem List - Problems (1) Dizziness Assessment/Plan: exam is nonfocal for acute [employer] pathology Questionable posterior circulation TIA BPPV 1. Fall precautions. 2. Tight blood pressure control. 3. MRI of the brain with no contrast. 4. Physical therapy Thank you very much for allowing me to be part of this patient's neurological care will follow the patient during the admission thank you Regina Tipton M.D. Code(s): R42 - DIZZINESS AND GIDDINESS
--- NOTE | 2019-07-05 12:53 | EKG ---
Test Reason : Blood Pressure : / mmHG Vent. Rate : 109 BPM Atrial Rate : 109 BPM P-R Int : 216 ms QRS Dur : 102 ms QT Int : 298 ms P-R-T Axes : 045 -34 089 degrees QTc Int : 401 ms SINUS TACHYCARDIA WITH 1ST DEGREE A-V BLOCK LEFT AXIS DEVIATION INCOMPLETE RIGHT BUNDLE BRANCH BLOCK LEFT VENTRICULAR HYPERTROPHY WITH REPOLARIZATION ABNORMALITY CANNOT RULE OUT SEPTAL INFARCT , AGE UNDETERMINED ABNORMAL ECG WHEN COMPARED WITH ECG OF 24-OCT-2012 10:16, PREMATURE VENTRICULAR COMPLEXES ARE NO LONGER PRESENT MS INTERVAL HAS INCREASED INCOMPLETE RIGHT BUNDLE BRANCH BLOCK IS NOW PRESENT MINIMAL CRITERIA FOR SEPTAL INFARCT ARE NOW PRESENT Confirmed by MING MARISCAL MD ([id number]) on 07/05/2019 12:53:05 PM Referred By: Confirmed By:MING MARISCAL MD
--- NOTE | 2019-07-05 17:19 | PN ---
Physical Exam: SUBJECTIVE: Patient seen and examined at the bedside. feels improved, no shortness of breath. denies chest pain. still having dizziness. OBJECTIVE: Patient is a 78-year-old female with history of hypertension hypercholesterolemia presents with sudden onset of dizziness associated with nausea and vomiting as well as dysmetria and [id number] abnormalities that have now significantly improved. CT of head shows no evidence of intracranial hemorrhage. Patient is not a TPA candidate given the resolution of her symptoms. EKG shows no evidence of acute ischemia or dysrhythmia. She is being ruled out for tia/cva. her MRI is negative, carotid dopplers within normal limits. On exam, awake and alert still having dizziness with position changes. Also reports palpitations, but no arrhythmias see on monitor. PT ordered. patient also follows with Dr. Whitney Vazquez and he has been consulted. She has had a recent echo in his office. Vital Signs Period Temp Pulse Resp BP Sys/Coello Pulse Ox Last 24 Hr 97.3 F-98.5 F 65-113 16-20 141-174/72-91 97-100 GENERAL: The patient is awake, alert, and fully oriented, in no acute distress. HEAD: Normal with no signs of trauma. EYES: PERRL, extraocular movements intact, sclera anicteric, conjunctiva clear. No ptosis. ENT: Ears normal, nares patent, oropharynx clear without exudates, moist mucous membranes. NECK: Trachea midline, full range of motion, supple. LUNGS: Breath sounds equal, clear to auscultation bilaterally HEART: Regular rate and rhythm ABDOMEN: Soft, nontender, nondistended, normoactive bowel sounds EXTREMITIES: 2+ pulses, warm, well-perfused, no edema. NEUROLOGICAL: Normal speech, gait steady PSYCH: Normal mood, normal affect. SKIN: Warm, dry, normal turgor, no rashes or lesions noted Laboratory Results - last 24 hr 07/04/19 07/04/19 07/04/19 09:35 18:20 18:20 WBC 4.8 RBC 4.78 Hgb 14.8 Hct 43.1 MCV 90.2 MCH 31.0 MCHC 34.4 RDW 14.3 Plt Count 232 MPV 8.2 Absolute Neuts (auto) 3.1 Neutrophils % 65.3 D Lymphocytes % 25.9 Monocytes % 8.3 Eosinophils % 0.3 D Basophils % 0.2 Nucleated RBC % 0 PT with INR INR Sodium Potassium Chloride Carbon Dioxide Anion Gap BUN Creatinine Est GFR (CKD-EPI)AfAm Est GFR (CKD-EPI)NonAf POC Glucometer Random Glucose Hemoglobin A1c % Calcium Phosphorus Magnesium Total Bilirubin AST ALT Alkaline Phosphatase Creatine Kinase 173 Creatine Kinase Index 0.8 CK-MB (CK-2) 1.4 Troponin I < 0.02 Total Protein Albumin Triglycerides Cholesterol Total LDL Cholesterol HDL Cholesterol Lipase 245 TSH Urine Color Yellow Urine Appearance Clear Urine pH 6.5 Ur Specific Barco 1.018 Urine Protein Negative Urine Glucose (UA) Negative Urine Ketones Negative Urine Blood Negative Urine Nitrite Negative Urine Bilirubin Negative Urine Urobilinogen 1.0 Ur Leukocyte Esterase 1+ H Urine WBC (Auto) 4 Urine RBC (Auto) 1 Urine Casts (Auto) 5 U Epithel Cells (Auto) 2.2 Urine Bacteria (Auto) 12.4 07/04/19 07/04/19 07/05/19 18:20 18:20 05:20 WBC 4.5 RBC 4.28 Hgb 13.2 Hct 38.5 MCV 89.9 MCH 30.9 MCHC 34.4 RDW 13.9 Plt Count 206 MPV 8.1 Absolute Neuts (auto) 2.4 Neutrophils % 53.9 Lymphocytes % 33.0 D Monocytes % 11.6 H Eosinophils % 1.0 D Basophils % 0.5 Nucleated RBC % 0 PT with INR 13.30 H INR 1.13 H Sodium 135 L Potassium 3.9 Chloride 104 Carbon Dioxide 23 Anion Gap 7 L BUN 18.4 H Creatinine 1.1 Est GFR (CKD-EPI)AfAm 56.48 Est GFR (CKD-EPI)NonAf 48.73 POC Glucometer Random Glucose 169 H Hemoglobin A1c % Calcium 9.9 Phosphorus Magnesium 2.3 Total Bilirubin 1.2 H AST 26 ALT 19 Alkaline Phosphatase 135 H Creatine Kinase Creatine Kinase Index CK-MB (CK-2) Troponin I Total Protein 9.7 H Albumin 4.0 Triglycerides Cholesterol Total LDL Cholesterol HDL Cholesterol Lipase TSH Urine Color Urine Appearance Urine pH Ur Specific Barco Urine Protein Urine Glucose (UA) Urine Ketones Urine Blood Urine Nitrite Urine Bilirubin Urine Urobilinogen Ur Leukocyte Esterase Urine WBC (Auto) Urine RBC (Auto) Urine Casts (Auto) U Epithel Cells (Auto) Urine Bacteria (Auto) 12/26/19 12/26/19 12/26/19 05:20 05:20 06:21 WBC RBC Hgb Hct MCV MCH MCHC RDW Plt Count MPV Absolute Neuts (auto) Neutrophils % Lymphocytes % Monocytes % Eosinophils % Basophils % Nucleated RBC % PT with INR INR Sodium 143 Potassium 3.7 Chloride 113 H Carbon Dioxide 25 Anion Gap 4 L BUN 14.3 Creatinine 1.0 Est GFR (CKD-EPI)AfAm 63.38 Est GFR (CKD-EPI)NonAf 54.68 POC Glucometer 81 Random Glucose 82 Hemoglobin A1c % 5.4 Calcium 9.3 Phosphorus 3.2 Magnesium 2.3 Total Bilirubin 1.1 H AST 22 ALT 14 Alkaline Phosphatase 114 Creatine Kinase Creatine Kinase Index CK-MB (CK-2) Troponin I Total Protein 8.4 H Albumin 3.4 Triglycerides 62 Cholesterol 129 Total LDL Cholesterol 70 HDL Cholesterol 52 Lipase TSH 1.21 Urine Color Urine Appearance Urine pH Ur Specific Barco Urine Protein Urine Glucose (UA) Urine Ketones Urine Blood Urine Nitrite Urine Bilirubin Urine Urobilinogen Ur Leukocyte Esterase Urine WBC (Auto) Urine RBC (Auto) Urine Casts (Auto) U Epithel Cells (Auto) Urine Bacteria (Auto) 07/05/19 12:48 WBC RBC Hgb Hct MCV MCH MCHC RDW Plt Count MPV Absolute Neuts (auto) Neutrophils % Lymphocytes % Monocytes % Eosinophils % Basophils % Nucleated RBC % PT with INR INR Sodium Potassium Chloride Carbon Dioxide Anion Gap BUN Creatinine Est GFR (CKD-EPI)AfAm Est GFR (CKD-EPI)NonAf POC Glucometer 92 Random Glucose Hemoglobin A1c % Calcium Phosphorus Magnesium Total Bilirubin AST ALT Alkaline Phosphatase Creatine Kinase Creatine Kinase Index CK-MB (CK-2) Troponin I Total Protein Albumin Triglycerides Cholesterol Total LDL Cholesterol HDL Cholesterol Lipase TSH Urine Color Urine Appearance Urine pH Ur Specific Barco Urine Protein Urine Glucose (UA) Urine Ketones Urine Blood Urine Nitrite Urine Bilirubin Urine Urobilinogen Ur Leukocyte Esterase Urine WBC (Auto) Urine RBC (Auto) Urine Casts (Auto) U Epithel Cells (Auto) Urine Bacteria (Auto) Active Medications Generic Name Dose Route Start Last Admin Trade Name Freq PRN Reason Stop Dose Admin Acetaminophen 650 mg 07/04/19 23:47 Tylenol - PO Q6H PRN PAIN LEVEL 6-10 Aspirin 81 mg 07/05/19 10:00 07/05/19 10:18 Ecotrin - PO 81 mg DAILY JOANA Administration Guaifenesin 10 ml 07/05/19 14:34 Robitussin Dm - PO Q6H PRN COUGH Heparin Sodium (Porcine) 5,000 unit 07/05/19 06:00 07/05/19 13:12 Heparin - SQ Not Given TID JOANA Sodium Chloride 1,000 mls @ 83 mls/hr 07/04/19 23:45 07/05/19 13:38 Normal Saline - IV 83 mls/hr ASDIR JOANA Administration Meclizine HCl 12.5 mg 07/04/19 23:54 Antivert - PO Q6H PRN VERTIGO Rosuvastatin Calcium 5 mg 07/05/19 22:00 Crestor - PO HS JOANA ASSESSMENT/PLAN: Problem List - Problems (1) TIA (transient ischemic attack) Assessment/Plan: rule out for TIA carotid dopplers negative brain mri negative still having dizziness with position changes, Pt ordered neurology follow up in a.m. d/c once cleared by neurology Code(s): G45.9 - TRANSIENT CEREBRAL ISCHEMIC ATTACK, UNSPECIFIED (2) Dizziness Assessment/Plan: physical therapy ordered safety maintained may need home PT Code(s): R42 - DIZZINESS AND GIDDINESS (3) Sinusitis Assessment/Plan: chronic Code(s): J32.9 - CHRONIC SINUSITIS, UNSPECIFIED Qualifiers: Sinusitis location: unspecified location Chronicity: unspecified Qualified Code(s): J32.9 - Chronic sinusitis, unspecified Visit type - Emergency Visit Emergency Visit: Yes ED Registration Date: 07/04/19 Care time: The patient presented to the Emergency Department on the above date and was hospitalized for further evaluation of their emergent condition. - New Patient This patient is new to me today: Yes Date on this admission: 07/05/19 - Critical Care Critical Care patient: No - Discharge Referral Referred to [facility] Med P.C.: No
[2019-07-05] MEDS: guaiFENesin/D-METHORPHAN HB 10 ML UNIT-DOSE CUPS PO PRN (18:43)
[2019-07-05] MEDS ORDERED: ROSUVASTATIN CA 5 MG TABLET (FP) PO SCH (22:00)
[2019-07-06] MEDS: SODIUM CHLORIDE 1,000 ML IV SCH (03:14)
[2019-07-06] MEDS: HEPARIN NA (PORCINE) 5,000 UNITS/ML 1ML VIAL SQ SCH ×2 (06:18→14:05)
--- NOTE | 2019-07-06 07:36 | PN ---
Progress Note, Physician History of Present Illness: Patient is a 78-year-old female with history of hypertension hypercholesterolemia presents with sudden onset of dizziness associated with nausea and vomiting as well as dysmetria and anvevl-jz-kvsz abnormalities that have now significantly improved. CT of head shows no evidence of intracranial hemorrhage. Patient is not a TPA candidate given the resolution of her symptoms. EKG shows no evidence of acute ischemia or dysrhythmia. She is being ruled out for tia/cva. her MRI is negative, carotid dopplers within normal limits. On exam, awake and alert still having dizziness with position changes. Also reports palpitations, but no arrhythmias see on monitor. PT ordered. patient also follows with Dr. Whitney Vazquez and he has been consulted. She has had a recent echo in his office. - Current Medication List Current Medications: Active Medications Acetaminophen (Tylenol -) 650 mg PO Q6H PRN PRN Reason: PAIN LEVEL 6-10 Aspirin (Ecotrin -) 81 mg PO DAILY [facility] Last Admin: 07/05/19 10:18 Dose: 81 mg Guaifenesin (Robitussin Dm -) 10 ml PO Q6H PRN PRN Reason: COUGH Last Admin: 07/05/19 18:43 Dose: 10 ml Heparin Sodium (Porcine) (Heparin -) 5,000 unit SQ TID [facility] Last Admin: 07/06/19 06:18 Dose: Not Given Sodium Chloride (Normal Saline -) 1,000 mls @ 83 mls/hr IV ASDIR [facility] Last Admin: 07/06/19 03:14 Dose: 83 mls/hr Meclizine HCl (Antivert -) 12.5 mg PO Q6H PRN PRN Reason: VERTIGO Rosuvastatin Calcium (Crestor -) 5 mg PO HS [facility] Last Admin: 07/05/19 22:11 Dose: 5 mg - Objective Vital Signs: Vital Signs Temperature 98.3 F 07/06/19 06:00 Pulse Rate 57 L 07/06/19 06:00 Respiratory Rate 18 07/06/19 06:00 Blood Pressure 146/76 07/06/19 06:00 O2 Sat by Pulse Oximetry (%) 99 07/05/19 21:00 Constitutional: Yes: Well Nourished, No Distress, Calm Eyes: Yes: WNL, Conjunctiva Clear HENT: Yes: WNL, Atraumatic, Normocephalic Neck: Yes: WNL, Supple, Trachea Midline Cardiovascular: Yes: WNL, Regular Rate and Rhythm Respiratory: Yes: WNL, Regular, CTA Bilaterally Gastrointestinal: Yes: WNL, Normal Bowel Sounds ...Rectal Exam: Yes: Deferred Genitourinary: Yes: WNL Breast(s): Yes: WNL Musculoskeletal: Yes: WNL Extremities: Yes: WNL Edema: No Peripheral Pulses WNL: Yes Peripheral Pulses: Left Radial: 2+, Right Radial: 2+, Left Doralis Pedis: 2+, Right Dorsalis Pedis: 2+, Left Femoral: 2+, Right Femoral: 2+ Integumentary: Yes: WNL Neurological: Yes: WNL, Alert, Oriented ...Motor Strength: WNL Psychiatric: Yes: WNL Labs: CBC, BMP 07/05/19 05:20 07/05/19 05:20 INR, PTT INR 1.13 (0.83-1.09) H 07/04/19 18:20 Problem List - Problems (1) HTN (hypertension) Code(s): I10 - ESSENTIAL (PRIMARY) HYPERTENSION (2) HLD (hyperlipidemia) Code(s): E78.5 - HYPERLIPIDEMIA, UNSPECIFIED (3) Nausea & vomiting Code(s): R11.2 - NAUSEA WITH VOMITING, UNSPECIFIED (4) Prophylactic measure Code(s): Z29.9 - ENCOUNTER FOR PROPHYLACTIC MEASURES, UNSPECIFIED (5) Dizziness Code(s): R42 - DIZZINESS AND GIDDINESS (6) TIA (transient ischemic attack) Code(s): G45.9 - TRANSIENT CEREBRAL ISCHEMIC ATTACK, UNSPECIFIED
[2019-07-06] MEDS: guaiFENesin/D-METHORPHAN HB 10 ML UNIT-DOSE CUPS PO PRN (08:48)
[2019-07-06] MEDS: ASPIRIN COATED 81 MG TABLET.EC PO SCH (09:21)
--- NOTE | 2019-07-06 11:50 | CON.CARD ---
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 Whenever, pt tried to ambulate, she would also get extremely unsteady per daughter and she would have to sit or be assisted to the bathroom. She also denies headache, changes in vision, hearing loss, tinnitus,syncope, chest pain, SOB, palpitations , numbness/tingling, weakness or changes in urination. Pt endorsed resolution of her symptoms since admission and after receiving fluids, now tolerating regular diet, no events on monitor. Lst saw Whitney Jones 05/25/2019. - History Source History Provided By: Patient Limitations to Obtaining History: No Limitations - Alcohol/Substance Use Hx Alcohol Use: No - Smoking History Smoking history: Never smoked Have you smoked in the past 12 months: No Home Medications - Allergies Allergies/Adverse Reactions: Allergies Allergy/AdvReac Type Severity Reaction Status Date / Time codeine [Codeine] Allergy Intermediate Verified 08/02/16 12:07 - Home Medications Home Medications: Ambulatory Orders Calcium 250Mg/Vit-D 125 Units [Oscal 250 mg+D -] 2 each PO BID 10/23/12 Metoprolol Succinate 25 mg PO HS 12/11/12 Rosuvastatin Calcium [Crestor] 5 mg PO HS 12/11/12 Carboxymethyl/Glycerin/Poly80 [Refresh Optive Advanced Drops] 07/04/19 Olopatadine HCl 07/04/19 Review of Systems - Review of Systems Gastrointestinal: reports: Diarrhea, Nausea, Vomiting Neurological: reports: Dizziness, Incoordination Vital Signs: Vital Signs Temperature 98.1 F 07/06/19 09:24 Pulse Rate 70 07/06/19 09:24 Respiratory Rate 18 07/06/19 09:24 Blood Pressure 137/76 07/06/19 09:24 O2 Sat by Pulse Oximetry (%) 98 07/06/19 09:00 Constitutional: Yes: No Distress, Calm Neck: Yes: Supple Respiratory: Yes: Regular, CTA Bilaterally Gastrointestinal: Yes: Normal Bowel Sounds Cardiovascular: Yes: Regular Rate and Rhythm JVD: No Carotid Bruit: No Heart Sounds: Yes: S1, S2 Edema: No - Other Data Labs, Other Data: CBC, BMP 07/05/19 05:20 07/05/19 05:20 INR, PTT INR 1.13 (0.83-1.09) H 07/04/19 18:20 ST @ 109 LAD, LVH Tele: NSR no PAF Ejection Fraction %: LVEF > or = 40 % Imaging - Results Chest X-ray: Report Reviewed (NAD) Problem List - Problems (1) Sarcoidosis of lymph nodes Code(s): 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 - SARCOIDOSIS OF LYMPH NODES (2) Vasovagal near syncope Code(s): R55 - SYNCOPE AND COLLAPSE (3) Dizziness Code(s): R42 - DIZZINESS AND GIDDINESS (4) HLD (hyperlipidemia) Code(s): E78.5 - HYPERLIPIDEMIA, UNSPECIFIED Qualifiers: Hyperlipidemia type: pure hypercholesterolemia Qualified Code(s): E78.00 - Pure hypercholesterolemia, unspecified; E78.0 - Pure hypercholesterolemia (5) HTN (hypertension) Code(s): I10 - ESSENTIAL (PRIMARY) HYPERTENSION (6) Nausea & vomiting Code(s): R11.2 - NAUSEA WITH VOMITING, UNSPECIFIED Assessment/Plan 07/05/2019 Brain MRI: No acute or subacute stroke 07/05/2019 HCT: Negative 07/05/2019 Carotid US: No stenosis 1. Vasovagal near syncope with typical prodromal symptoms 2. Hyperlipidemia 3. Sarcoidosis - mediastinal LN 4. Resolved gastroenteritis 5. Nonobstructive CAD 6. Pulm HTN P:1. Recommended abortive maneuvers once prodromal sxs have been experienced 2. Continue Toprol XL 25 qd, Crestor 5 d 3. May d/c home from CV-standpoint with f/u with Dr. Olson 4. Cardiac MRI or PET scan as outpatient to r/o cardiac sarcoid 5. Thank you for consultative opportunity
[2019-07-06 13:58] VITALS: BP 151/84; PULSE 65; TEMP 98
--- NOTE | 2019-07-06 15:20 | DS ---
Physical Exam: SUBJECTIVE: Patient seen and examined Patient is a 78-year-old female with history of hypertension hypercholesterolemia presents with sudden onset of dizziness associated with nausea and vomiting as well as dysmetria and ykapap-yk-daxi abnormalities that have now significantly improved. CT of head shows no evidence of intracranial hemorrhage. Patient is not a TPA candidate given the resolution of her symptoms. EKG shows no evidence of acute ischemia or dysrhythmia. She is being ruled out for tia/cva. her MRI is negative, carotid dopplers within normal limits. Medically stable for discharge to home with cardiology follow up as outpatient OBJECTIVE: Vital Signs Period Temp Pulse Resp BP Sys/Coello Pulse Ox Last 24 Hr 98 F-98.3 F 57-70 16-18 136-151/68-84 98-99 PHYSICAL EXAM Constitutional: Yes: Well Nourished, No Distress, Calm Eyes: Yes: WNL, Conjunctiva Clear HENT: Yes: WNL, Atraumatic, Normocephalic Neck: Yes: WNL, Supple, Trachea Midline Cardiovascular: Yes: WNL, Regular Rate and Rhythm Respiratory: Yes: WNL, Regular, CTA Bilaterally Gastrointestinal: Yes: WNL, Normal Bowel Sounds ...Rectal Exam: Yes: Deferred Genitourinary: Yes: WNL Breast(s): Yes: WNL Musculoskeletal: Yes: WNL Extremities: Yes: WNL Edema: No Peripheral Pulses WNL: Yes Peripheral Pulses: Left Radial: 2+, Right Radial: 2+, Left Doralis Pedis: 2+, Right Dorsalis Pedis: 2+, Left Femoral: 2+, Right Femoral: 2+ Integumentary: Yes: WNL Neurological: Yes: WNL, Alert, Oriented ...Motor Strength: WNL Psychiatric: Yes: WNL LABS HOSPITAL COURSE: Date of Admission:07/04/19 Date of Discharge: 07/06/19 - Problems (1) TIA (transient ischemic attack) Assessment/Plan: rule out for TIA carotid dopplers negative brain mri negative still having dizziness with position changes cleared by neurology Code(s): G45.9 - TRANSIENT CEREBRAL ISCHEMIC ATTACK, UNSPECIFIED (2) Dizziness Assessment/Plan: seen by PT dizziness resolved seen by cardiology and will f/u as outpatinet if dizziness returns advised pt to stop activity and if persists take meclizine Code(s): R42 - DIZZINESS AND GIDDINESS (3) Sinusitis Assessment/Plan: chronic Code(s): J32.9 - CHRONIC SINUSITIS, UNSPECIFIED Medically stable for dc home without services Minutes to complete discharge: 40 Discharge Summary Problems reviewed: Yes Reason For Visit: TRANSIENT ISCHEMIC ATTACK Current Active Problems Dizziness (Acute) HLD (hyperlipidemia) (Acute) HTN (hypertension) (Acute) Nausea & vomiting (Acute) Prophylactic measure (Acute) Sarcoidosis of lymph nodes (Acute) TIA (transient ischemic attack) (Acute) Vasovagal near syncope (Acute) Hospital Course: - Problems (1) TIA (transient ischemic attack) Assessment/Plan: rule out for TIA carotid dopplers negative brain mri negative still having dizziness with position changes cleared by neurology Code(s): G45.9 - TRANSIENT CEREBRAL ISCHEMIC ATTACK, UNSPECIFIED (2) Dizziness Assessment/Plan: seen by PT dizziness resolved seen by cardiology and will f/u as outpatinet if dizziness returns advised pt to stop activity and if persists take meclizine Code(s): R42 - DIZZINESS AND GIDDINESS (3) Sinusitis Assessment/Plan: chronic Code(s): J32.9 - CHRONIC SINUSITIS, UNSPECIFIED Medically stable for dc home without services Condition: Improved - Instructions Diet, Activity, Other Instructions: DISCHARGE YOUR VISIT You came to the hospital because you had a sudden onset of dizziness associated with nausea and vomiting. You were seen by neurology and you DID NOT have a stroke You were seen by cardiology and it is recommended that you follow with Dr Olson and have an Cardiac MRI as an outpatient-Dr Olson can arrange that for you. If you continue to have dizziness , stop the activity that you are doing and rest. If if continues then you can take one meclizine tablet. It is gets worse or persists that call you primary provider or return back to the ED MEDICATIONS Please continue to take your home medications as prescribed. There was no changes. Take one meclizine tablets every 6h for dizziness DIET Continue your home diet-low sodium, low fat diet ADDITIONAL CARE Please make an appointment to see your primary care provider, Dr Olson 2 weeks from today. ADDITIONAL INFORMATION Please call 911 or come directly to the emergency department if you experience unusual headache, vision change, shortness of breath, chest pain, numbness, tingling, loss of alertness/awareness, loss of function, unusual bleeding or any alarming symptoms. Thank you for allowing me to care for you. Abdias Gonsales, ACNP, [facility] Referrals: George Olson MD [Staff Physician] - 2 Weeks (call for appointment) Aubree Perry MD [Primary Care Provider] - - Home Medications Comprehensive Discharge Medication List: Ambulatory Orders Calcium 250Mg/Vit-D 125 Units [Oscal 250 mg+D -] 2 each PO BID 10/23/12 Metoprolol Succinate 25 mg PO HS 12/11/12 Rosuvastatin Calcium [Crestor] 5 mg PO HS 12/11/12 Carboxymethyl/Glycerin/Poly80 [Refresh Optive Advanced Drops] 07/04/19 Olopatadine HCl 07/04/19 Aspirin Coated [Ecotrin -] 81 mg PO DAILY tablet.ec 07/06/19 Meclizine HCl [Antivert -] 12.5 mg PO Q6H PRN #30 tablet 07/06/19 Prescription Drug Monitoring Program (I-STOP) results: I-STOP not reviewed Problem List - Problems (1) HTN (hypertension) Code(s): I10 - ESSENTIAL (PRIMARY) HYPERTENSION (2) HLD (hyperlipidemia) Code(s): E78.5 - HYPERLIPIDEMIA, UNSPECIFIED Qualifiers: Hyperlipidemia type: pure hypercholesterolemia Qualified Code(s): E78.00 - Pure hypercholesterolemia, unspecified; E78.0 - Pure hypercholesterolemia (3) Nausea & vomiting Code(s): R11.2 - NAUSEA WITH VOMITING, UNSPECIFIED (4) Prophylactic measure Code(s): Z29.9 - ENCOUNTER FOR PROPHYLACTIC MEASURES, UNSPECIFIED (5) Dizziness Code(s): R42 - DIZZINESS AND GIDDINESS (6) TIA (transient ischemic attack) Code(s): G45.9 - TRANSIENT CEREBRAL ISCHEMIC ATTACK, UNSPECIFIED This patient is new to me today: Yes Date on this admission: 07/06/19 Emergency Visit: Yes ED Registration Date: 07/04/19 Care time: The patient presented to the Emergency Department on the above date and was hospitalized for further evaluation of their emergent condition. Critical Care patient: No - Discharge Referral Referred to [facility] Med [facility].: No
== END 2019-07-06 15:48 | disposition home or self-care (01) | DRG 69 ==
LOC: JER 17:39 → JERBED 22:51 → J4S 07-05 01:12
PROVIDERS: ADMIT Internal Medicine; ATTEND Nurse Practitioner Acute Care
DX: G45.9 Transient cerebral ischemic attack, unspecified (principal); E87.1 Hypo-osmolality and hyponatremia; R42 Dizziness and giddiness; D86.9 Sarcoidosis, unspecified; J32.9 Chronic sinusitis, unspecified; I48.91 Unspecified atrial fibrillation; I10 Essential (primary) hypertension; R55 Syncope and collapse; E78.5 Hyperlipidemia, unspecified; K52.9 Noninfective gastroenteritis and colitis, unspecified; I25.10 Atherosclerotic heart disease of native coronary artery without angina pectoris; I27.20 Pulmonary hypertension, unspecified; R29.702 NIHSS score 2
CPT/HCPCS: 36415; 70450-TC; 70551-TC; 71045-TC-FY; 80053; 80061; 81003; 82550; 82553; 82962; 83036; 83690; 83721; 83735; 84100; 84443; 84484; 85025; 85610; 93005; 93010; 93880-TC; 97116-GP; 97161-GP; 99285-25; J7030

== ENCOUNTER 2020-06-30 22:01 | Observation (INO) | payer OTHER ==
[2020-06-30 22:07] VITALS: BMI 25.7
[2020-06-30 23:44] LABS: BASO % 0.5 % (0-2.0); HEMOGLOBIN 14.7 GM/dL (10.7-15.3); LYMPH % 9.6 % (8-40); MCH 31.6 pg (25.7-33.7); MCHC 34.1 g/dl (32.0-36.0); MEAN CELL VOLUME 92.4 fl (80-96); MEAN PLT VOLUME 7.9 fl (7.5-11.1); MONO % 2.1 % (3.8-10.2); NEUT % 87.8 % (42.8-82.8); PLATELET COUNT 265 K/MM3 (134-434); RBC 4.65 M/mm3 (3.60-5.2); RDW 14.6 % (11.6-15.6); WHITE BLOOD COUNT 9.4 K/mm3 (4.0-10.0)
[2020-07-01 00:01] LABS: PROTHROMBIN TIME (PATIENT) 12.3 SEC (9.7-13.0)
[2020-07-01 00:05] LABS: ACTIVATED PTT 37.6 SECONDS (25.2-36.5)
[2020-07-01 00:13] LABS: POTASSIUM 4.3 mmol/L (3.5-5.1)
[2020-07-01 00:15] LABS: ALBUMIN 4.1 g/dl (3.4-5.0); BLOOD UREA NITROGEN 18.9 mg/dL (7-18)
[2020-07-01 00:18] LABS: CREATININE 1.5 mg/dL (0.55-1.3)
[2020-07-01 00:19] LABS: BILIRUBIN,TOTAL 0.6 mg/dL (0.2-1); TOT PROT 8.8 g/dl (6.4-8.2)
[2020-07-01] MEDS ORDERED: ASPIRIN COATED 81 MG TABLET.EC PO ONE (00:59)
[2020-07-01] MEDS ORDERED: FAMOTIDINE 20 MG/50 ML IVPB 20 MG/50 ML MG IVPB ONE ×2 (01:06→01:19)
[2020-07-01] MEDS ORDERED: ASPIRIN COATED 81 MG TABLET.EC ONE (01:18)
[2020-07-01 09:15] LABS: BLOOD UREA NITROGEN 18.2 mg/dL (7-18); CALCIUM 10.1 mg/dL (8.5-10.1); CHLORIDE 107 mmol/L (98-107); CO2 26 mmol/L (21-32); CREATININE 1.2 mg/dL (0.55-1.3); GLUCOSE,RANDOM 131 mg/dL (74-106); POTASSIUM 4.4 mmol/L (3.5-5.1); SODIUM 139 mmol/L (136-145)
[2020-07-01 09:19] LABS: ANION GAP 7 MMOL/L (8-16)
[2020-07-01] MEDS ORDERED: metoPROLOL SUCCINATE 25 MG TAB.SR.24H (FP) PO SCH (11:30)
[2020-07-01] MEDS ORDERED: OLOPATADINE HCL 0.1% OU SCH (11:30)
[2020-07-01] MEDS ORDERED: metoPROLOL SUCCINATE 25 MG TAB.SR.24H (FP) ONE (11:48)
[2020-07-01] MEDS ORDERED: ROSUVASTATIN CA 5 MG TABLET (FP) PO SCH (22:00)
[2020-07-02 06:40] VITALS: TEMP 97.8
[2020-07-02 07:49] LABS: BASO % 0.2 % (0-2.0); EOS % 0.2 % (0-4.5); HEMATOCRIT 40.3 % (32.4-45.2); HEMOGLOBIN 13.9 GM/dL (10.7-15.3); LYMPH % 15.5 % (8-40); MCH 31.7 pg (25.7-33.7); MCHC 34.5 g/dl (32.0-36.0); MEAN CELL VOLUME 91.9 fl (80-96); MEAN PLT VOLUME 8.2 fl (7.5-11.1); MONO % 6.5 % (3.8-10.2); NEUT % 77.6 % (42.8-82.8); PLATELET COUNT 235 K/MM3 (134-434); RBC 4.39 M/mm3 (3.60-5.2); RDW 14.7 % (11.6-15.6); WHITE BLOOD COUNT 11.3 K/mm3 (4.0-10.0)
[2020-07-02 07:56] LABS: POTASSIUM 4.3 mmol/L (3.5-5.1)
[2020-07-02] MEDS ORDERED: ROSUVASTATIN CA 10 MG TABLET (FP) PO SCH (07:58)
[2020-07-02 08:01] LABS: BLOOD UREA NITROGEN 27.8 mg/dL (7-18); MAGNESIUM 2.2 mg/dL (1.8-2.4)
[2020-07-02 08:04] LABS: CREATININE 1.2 mg/dL (0.55-1.3)
[2020-07-02] MEDS ORDERED: LISINOPRIL 5 MG TABLET PO SCH (10:00)
[2020-07-02] MEDS: LISINOPRIL 10 MG TABLET PO SCH ×2 (10:13→10:34)
[2020-07-02 11:54] VITALS: BP 154/71; PULSE 60
== END 2020-07-02 11:45 | disposition home or self-care (01) ==
LOC: JER 22:01 → JERBED 07-01 01:22
PROVIDERS: ATTEND Internal Medicine
PROC: 3E033GC Introduction of Other Therapeutic Substance into Peripheral Vein, Percutaneous Approach (ICD-10-PCS; principal; 2020-07-01)
DX: I47.1 Supraventricular tachycardia (principal); R73.9 Hyperglycemia, unspecified; I10 Essential (primary) hypertension; I38 Endocarditis, valve unspecified; I49.3 Ventricular premature depolarization; I27.20 Pulmonary hypertension, unspecified; I34.0 Nonrheumatic mitral (valve) insufficiency; D86.9 Sarcoidosis, unspecified; E78.00 Pure hypercholesterolemia, unspecified; Z88.5 Allergy status to narcotic agent; R07.9 Chest pain, unspecified
CPT/HCPCS: 36415; 71045-TC-FY; 80048; 80053; 80061; 82550; 82728; 83036; 83615; 83721; 83735; 84439; 84443; 84484; 85025; 85379; 85610; 85730; 86140; 93005; 93010; 96365; 99285-25; C9803; G0378; U0003

== ENCOUNTER 2021-07-31 18:40 | Observation (INO) | payer OTHER ==
[2021-07-31 19:35] VITALS: TEMP 97.9
[2021-07-31 20:45] LABS: BASO % 0.4 % (0-2.0); EOS % 1.4 % (0-4.5); HEMATOCRIT 42.8 % (32.4-45.2); HEMOGLOBIN 14.7 GM/dL (10.7-15.3); MCH 30.5 pg (25.7-33.7); MCHC 34.2 g/dl (32.0-36.0); MEAN CELL VOLUME 89.2 fl (80-96); MEAN PLT VOLUME 7.5 fl (7.5-11.1); MONO % 10.4 % (3.8-10.2); NEUT % 69.8 % (42.8-82.8); PLATELET COUNT 198 10^3/uL (134-434); RDW 13.2 % (11.6-15.6); WHITE BLOOD COUNT 5.4 K/mm3 (4.0-10.0)
[2021-07-31 20:52] LABS: INR 1.17 (0.83-1.09); PROTHROMBIN TIME (PATIENT) 13.5 SEC (9.7-13.0)
[2021-07-31 21:05] LABS: CHLORIDE 106 mmol/L (98-107); SODIUM 139 mmol/L (136-145)
[2021-07-31 21:07] LABS: CALCIUM 10.2 mg/dL (8.5-10.1)
[2021-07-31 21:08] LABS: ANION GAP 7 MMOL/L (8-16); BLOOD UREA NITROGEN 16.3 mg/dL (7-18); CO2 25 mmol/L (21-32); GLUCOSE,RANDOM 101 mg/dL (74-106)
[2021-07-31 21:11] LABS: CREATININE 1.1 mg/dL (0.55-1.3); SGOT/AST 38 U/L (15-37); SGPT/ALT 23 U/L (13-61)
[2021-07-31 21:12] LABS: BILIRUBIN,TOTAL 1.1 mg/dL (0.2-1)
[2021-07-31 21:13] LABS: TOT PROT 8.2 g/dl (6.4-8.2)
[2021-07-31 21:14] LABS: ALK PHOS 72 U/L (45-117)
[2021-08-01] MEDS ORDERED: ASPIRIN 81 MG CHEWABLE TABLETS PO ONE (00:06)
[2021-08-01 00:16] VITALS: BP 142/74; PULSE 61
[2021-08-01] MEDS ORDERED: ASPIRIN 81 MG CHEWABLE TABLETS ONE (01:14)
== END 2021-08-01 01:05 | disposition home or self-care (01) ==
LOC: JER 18:40 → JERBED 08-01 00:10
PROVIDERS: ADMIT Hospitalist; ATTEND Hospitalist
DX: R07.9 Chest pain, unspecified (principal); R53.81 Other malaise; D86.9 Sarcoidosis, unspecified; I27.20 Pulmonary hypertension, unspecified; E78.5 Hyperlipidemia, unspecified; I49.9 Cardiac arrhythmia, unspecified; F79 Unspecified intellectual disabilities; R42 Dizziness and giddiness; I49.3 Ventricular premature depolarization
CPT/HCPCS: 36415; 71045-TC-FY; 80053; 82550; 84484; 85025; 85610; 93005; 93010; 99285-25; C9803; G0378; U0003; U0005

== ENCOUNTER 2023-06-15 22:25 | Emergency (ER) | payer OTHER ==
[2023-06-15 22:39] VITALS: TEMP 98.2; BMI 23.0
[2023-06-15] MEDS ORDERED: FAMOTIDINE 20 MG/50 ML IVPB 20 MG/50 ML MG IVPB ONE ×2 (22:42→22:45)
[2023-06-15] MEDS ORDERED: NITROGLYCERIN 50MG/D5W 250ML 50 MG/250 ML ML IVPB SCH (22:45)
[2023-06-15] MEDS ORDERED: ASPIRIN 81 MG CHEWABLE TABLETS PO ONE (22:50)
[2023-06-15 22:51] LABS: EOS % 2.3 % (0-4.5); HEMATOCRIT 39.2 % (32.4-45.2); HEMOGLOBIN 13.8 GM/dL (10.7-15.3); MCH 30.4 pg (25.7-33.7); MCHC 35.2 g/dl (32.0-36.0); MEAN CELL VOLUME 86.5 fl (80-96); MEAN PLT VOLUME 7.4 fl (7.5-11.1); MONO % 17.6 % (3.8-10.2); NEUT % 40.1 % (42.8-82.8); PLATELET COUNT 195 10^3/uL (134-434); RBC 4.54 M/mm3 (3.60-5.2); RDW 14.5 % (11.6-15.6); WHITE BLOOD COUNT 4.4 K/mm3 (4.0-10.0)
[2023-06-15] MEDS ORDERED: TICAGRELOR 90 MG TABLET PO ONE ×2 (22:51→22:52)
[2023-06-15] MEDS ORDERED: NITROGLYCERIN 25MG/D5W 250ML 25 MG/250 ML ML IVPB ONE (22:52)
[2023-06-15] MEDS ORDERED: ASPIRIN 325 MG TABLET ONE (22:53)
[2023-06-15] MEDS ORDERED: ASPIRIN 81 MG CHEWABLE TABLETS ONE (22:55)
[2023-06-15 23:00] LABS: INR 1.15 (0.83-1.09); PROTHROMBIN TIME (PATIENT) 13.3 SEC (9.7-13.0)
[2023-06-15 23:02] LABS: ACTIVATED PTT 45.6 SECONDS (25.2-36.5)
[2023-06-15 23:04] VITALS: RESP 18
[2023-06-15 23:15] LABS: POTASSIUM 3.5 mmol/L (3.5-5.1)
[2023-06-15 23:17] LABS: ALBUMIN 3.8 g/dl (3.4-5.0); BLOOD UREA NITROGEN 26.8 mg/dL (7-18); CALCIUM 9.7 mg/dL (8.5-10.1)
[2023-06-15 23:20] LABS: CREATININE 1.6 mg/dL (0.55-1.3)
[2023-06-15 23:22] LABS: BILIRUBIN,TOTAL 0.8 mg/dL (0.2-1); TOT PROT 8.7 g/dl (6.4-8.2)
[2023-06-15] MEDS ORDERED: HEPARIN NA (PORCINE) 5,000 UNITS/ML 1ML VIAL IVPUSH ONE (23:25)
[2023-06-15] MEDS ORDERED: HEPARIN NA (PORCINE) 5,000 UNITS/ML 1ML VIAL ONE (23:32)
[2023-06-15 23:43] VITALS: BP 135/86; PULSE 103
[2023-06-15] MEDS ORDERED: MAG HYDROX/AL HYDROX/SIMETH -MYLANTA- ORAL SUSPENSION PO ONE (23:48)
[2023-06-15 23:49] LABS: LACTIC ACID 4.3 mmol/L (0.4-2.0)
[2023-06-15] MEDS ORDERED: MAG HYDROX/AL HYDROX/SIMETH 30 ML UNIT-DOSE CUP ONE (23:49)
[2023-06-16] MEDS ORDERED: TICAGRELOR 90 MG TABLET PO ONE (22:51)
== END 2023-06-15 23:56 | disposition short-term general hospital (02) ==
LOC: JER 22:25
PROC: 3E03329 Introduction of Other Anti-infective into Peripheral Vein, Percutaneous Approach (ICD-10-PCS; principal; 2023-06-15)
PROC: 3E033GC Introduction of Other Therapeutic Substance into Peripheral Vein, Percutaneous Approach (ICD-10-PCS; 2023-06-15)
DX: R07.89 Other chest pain (principal); R11.2 Nausea with vomiting, unspecified; I21.3 ST elevation (STEMI) myocardial infarction of unspecified site; Z20.822 Contact with and (suspected) exposure to COVID-19
CPT/HCPCS: 36415; 71045-TC-FY; 80053; 82962; 83605; 83690; 83735; 84484; 85025; 85610; 85730; 86850; 86900; 86901; 87635; 93005; 93010; 99285-25; J1644

== ENCOUNTER 2023-11-28 15:07 | Emergency (ER) | payer OTHER ==
[2023-11-28 15:20] VITALS: PULSE 78; RESP 18; TEMP 98; BMI 24.7
[2023-11-28 17:21] LABS: HEMATOCRIT 43.3 % (32.4-45.2); HEMOGLOBIN 15.2 GM/dL (10.7-15.3); MCH 31.9 pg (25.7-33.7); MCHC 35.1 g/dl (32.0-36.0); MEAN CELL VOLUME 90.7 fl (80-96); MEAN PLT VOLUME 7.9 fl (7.5-11.1); PLATELET COUNT 229 10^3/uL (134-434); RBC 4.77 M/mm3 (3.60-5.2); RDW 15.5 % (11.6-15.6); WHITE BLOOD COUNT 9.2 K/mm3 (4.0-10.0)
[2023-11-28 17:27] LABS: INR 1.06 (0.83-1.09)
[2023-11-28 17:30] LABS: EPI CELLS 2 /uL (0-25.1); HYALINE CASTS 0 /uL (0-3.1); PH,URINE 6.5 (5.0-8.0); URINE APPEARANCE CLEAR; URINE BACTERIA 25 /uL (0-1359); URINE BILIRUBIN NEGATIVE (NEGATIVE); URINE COLOR YELLOW; URINE GLUCOSE (UA) NEGATIVE (NEGATIVE); URINE KETONE NEGATIVE (NEGATIVE); URINE LEUK ESTERASE 1+ (NEGATIVE); URINE NITRITE NEGATIVE (NEGATIVE); URINE PROTEIN NEGATIVE (NEGATIVE); URINE RBC 7 /uL (0-23.9); URINE WBC 7 /uL (0-25.8)
[2023-11-28 17:47] LABS: POTASSIUM 4.8 mmol/L (3.5-5.1)
[2023-11-28 17:49] LABS: CALCIUM 9.9 mg/dL (8.5-10.1)
[2023-11-28 17:50] LABS: ALBUMIN 3.8 g/dl (3.4-5.0); BLOOD UREA NITROGEN 27.2 mg/dL (7-18)
[2023-11-28 17:53] LABS: CREATININE 1.2 mg/dL (0.55-1.3)
[2023-11-28 17:55] LABS: TOT PROT 8.1 g/dl (6.4-8.2)
[2023-11-28 18:11] LABS: ANISOCYTOSIS 1+; MACROCYTOSIS 0; PLATELET ESTIMATE NORMAL
[2023-11-28] MEDS ORDERED: CEPHALEXIN MONOHYDRATE 250 MG CAPSULE (FP) PO ONE (18:54)
[2023-11-28] MEDS ORDERED: CEPHALEXIN MONOHYDRATE 250 MG CAPSULE (FP) ONE (19:02)
[2023-11-28 19:23] VITALS: BP 156/86
== END 2023-11-28 19:23 | disposition home or self-care (01) ==
LOC: JER 15:07
DX: R53.83 Other fatigue (principal); R53.1 Weakness; N39.0 Urinary tract infection, site not specified; R63.0 Anorexia; Z20.822 Contact with and (suspected) exposure to COVID-19
CPT/HCPCS: 0241U-QW; 36415; 71046-TC-FY; 80053; 81003; 84484; 85025; 85610; 86850; 86900; 86901; 87077; 87086; 93005; 93010; 99285-25

== ENCOUNTER 2023-11-29 09:11 | Emergency (ER) | payer OTHER ==
[2023-11-29 09:17] VITALS: BMI 23.6
[2023-11-29 10:11] LABS: BASO % 0.1 % (0-2.0); EOS % 0.2 % (0-4.5); HEMATOCRIT 41.8 % (32.4-45.2); HEMOGLOBIN 14.8 GM/dL (10.7-15.3); LYMPH % 11.5 % (8-40); MCH 32.1 pg (25.7-33.7); MCHC 35.3 g/dl (32.0-36.0); MEAN CELL VOLUME 90.7 fl (80-96); MEAN PLT VOLUME 7.3 fl (7.5-11.1); MONO % 7.3 % (3.8-10.2); NEUT % 80.9 % (42.8-82.8); PLATELET COUNT 221 10^3/uL (134-434); RBC 4.61 M/mm3 (3.60-5.2); RDW 15.7 % (11.6-15.6); WHITE BLOOD COUNT 8.6 K/mm3 (4.0-10.0)
[2023-11-29] MEDS: LACTATED RINGERS SOLUTION 1000 ML INFUS.BAG IV ONE (10:13)
[2023-11-29 10:17] LABS: INR 1.07 (0.83-1.09); PROTHROMBIN TIME (PATIENT) 12.1 SEC (9.7-13.0)
[2023-11-29 10:19] LABS: ACTIVATED PTT 36.3 SECONDS (25.2-36.5)
[2023-11-29 10:33] LABS: POTASSIUM 3.9 mmol/L (3.5-5.1)
[2023-11-29 10:35] LABS: CALCIUM 9.2 mg/dL (8.5-10.1)
[2023-11-29 10:36] LABS: ALBUMIN 3.5 g/dl (3.4-5.0); BLOOD UREA NITROGEN 25.9 mg/dL (7-18); MAGNESIUM 2.4 mg/dL (1.8-2.4)
[2023-11-29 10:40] LABS: BILIRUBIN,TOTAL 1.7 mg/dL (0.2-1); CREATININE 1.2 mg/dL (0.55-1.3)
[2023-11-29 10:41] LABS: TOT PROT 7.4 g/dl (6.4-8.2)
[2023-11-29 11:38] LABS: EPI CELLS 5 /uL (0-25.1); HYALINE CASTS 0 /uL (0-3.1); URINE APPEARANCE CLEAR; URINE BACTERIA 27 /uL (0-1359); URINE BILIRUBIN NEGATIVE (NEGATIVE); URINE COLOR YELLOW; URINE GLUCOSE (UA) NEGATIVE (NEGATIVE); URINE KETONE NEGATIVE (NEGATIVE); URINE LEUK ESTERASE 1+ (NEGATIVE); URINE NITRITE NEGATIVE (NEGATIVE); URINE PROTEIN NEGATIVE (NEGATIVE); URINE RBC 7 /uL (0-23.9); URINE WBC 11 /uL (0-25.8)
[2023-11-29 12:49] VITALS: BP 130/71; PULSE 70; RESP 20; TEMP 98.9
== END 2023-11-29 13:39 | disposition home or self-care (01) ==
LOC: JER 09:11
DX: R53.83 Other fatigue (principal); R53.1 Weakness; Z20.822 Contact with and (suspected) exposure to COVID-19
CPT/HCPCS: 0241U-QW; 36415; 80053; 81003; 83735; 84484; 85025; 85610; 85730; 86850; 86900; 86901; 87086; 99283-25

== ENCOUNTER 2024-04-27 10:18 | Emergency (ER) | payer OTHER ==
[2024-04-27 10:31] VITALS: BP 135/71; PULSE 84; RESP 16; TEMP 98.4; BMI 24.5
== END 2024-04-27 16:20 | disposition home or self-care (01) ==
LOC: JERFT 10:18
DX: M25.562 Pain in left knee (principal); M25.462 Effusion, left knee
CPT/HCPCS: 73562-TC-LT-FY; 73700-TC-RT; 99284-25